=== PATIENT | female | born 1945 | race Caucasian/White ===

== ENCOUNTER 2016-05-31 13:00 | Outpatient (CLI) | payer BC | END 2016-05-31 13:01 | disposition home or self-care (01) | DX: E03.9 Hypothyroidism, unspecified (principal); M12.9 Arthropathy, unspecified ==

== ENCOUNTER 2016-08-01 15:22 | Outpatient (CLI) | payer BC ==
--- NOTE | 2016-08-02 09:43 | XRAY Report ---
THREE-VIEW RIGHT FOOT: 08/01/2016 CLINICAL INDICATION: Pain. FINDINGS: AP, lateral, oblique views of the right foot demonstrate no evidence of fracture or disloc ation. Postoperative changes are seen in the first metatarsal head. Mild osteoarthritic changes are seen in the first metatarsophalangeal joint and interphalangeal joints. No radiopaque foreign body is seen in the soft tissues. IMPRESSION: POSTOPERATIVE CHANGES AND MILD OSTEOARTHRITIS. NO EVIDENCE OF ACUTE FRACTURE. JOB #: [id number] EXT JOB #:[id number]
--- NOTE | 2016-08-02 13:45 | XRAY Report ---
THREE-VIEW LEFT HAND: 08/01/2016 CLINICAL INDICATION: Pain. COMPARISON: 05/09/2016 FINDINGS: AP, lateral, oblique views of the left hand demonstrate stable osteoarthritis. There is n o evidence of interval fracture. No radiopaque foreign body is seen in the soft tissues. IMPRESSION: OSTEOARTHRITIS. NO EVIDENCE OF FRACTURE. JOB #: [id number] EXT JOB #:[id number]
== END 2016-08-01 15:23 | disposition home or self-care (01) ==
LOC: DI.S 15:22
PROVIDERS: ATTEND Nurse Practitioner Family
DX: M19.071 Primary osteoarthritis, right ankle and foot (principal); M19.042 Primary osteoarthritis, left hand

== ENCOUNTER 2017-03-07 14:30 | Outpatient (CLI) | payer BC ==
[2017-03-07 15:01] LABS: BASOPHILS % (AUTO) 0.6 %; EOSINOPHILS # (AUTO) 0.1 10^3/uL (0.0-0.7); HGB - HEMOGLOBIN 13.1 g/dL (12.0-16.0); LYMPHOCYTES # (AUTO) 1.5 10^3/uL (1.5-3.5); LYMPHOCYTES % (AUTO) 27.3 %; MEAN CORPUSCULAR HEMOGLOBIN 31.1 pg (27.0-31.0); MEAN CORPUSCULAR HGB CONC 33.7 g/dL (32.0-36.0); MEAN CORPUSCULAR VOLUME 92.2 fL (81.0-99.0); MEAN PLATELET VOLUME 6.9 fL (7.9-10.8); MONOCYTES # (AUTO) 0.3 10^3/uL (0.0-1.0); MONOCYTES % (AUTO) 5.9 %; NEUTROPHILS # (AUTO) 3.7 10^3/uL (1.5-6.6); NEUTROPHILS % (AUTO) 65.2 %; PLT - PLATELET COUNT 264 10^3/uL (130-450); RED BLOOD COUNT 4.22 10^6/uL (4.20-5.40); RED CELL DISTRIBUTION WIDTH 12.5 % (12.0-15.0); WHITE BLOOD COUNT 5.7 x10^3/uL (4.8-10.8)
[2017-03-07 15:07] LABS: ALBUMIN 4.1 g/dL (3.2-5.5); ALBUMIN/GLOBULIN RATIO 1.5 (1.0-2.2); BILIRUBIN,TOTAL 0.4 mg/dL (0.2-1.0); CALCIUM 8.9 mg/dL (8.5-10.3); CREATININE 0.7 mg/dL (0.4-1.0); TOTAL PROTEIN 6.9 g/dL (6.7-8.2)
== END 2017-03-07 14:31 | disposition home or self-care (01) ==
LOC: LAB 14:30
PROVIDERS: ATTEND Nurse Practitioner Family
DX: R10.31 Right lower quadrant pain (principal)
CPT/HCPCS: 36415; 80053; 85025

== ENCOUNTER 2017-06-07 09:33 | Outpatient (CLI) | payer BC ==
[2017-06-07 18:33] LABS: T3 UPTAKE 38.4 % (32.0-48.4)
[2017-06-07 18:40] LABS: FREE T4 (FREE THYROXINE) 1.04 ng/dL (0.58-1.64)
[2017-06-12 10:47] LABS: THYROID PEROXIDASE ANTIBODIES 197 IU/mL (<9)
== END 2017-06-07 09:34 | disposition home or self-care (01) ==
LOC: LAB.F 09:33
PROVIDERS: ATTEND Nurse Practitioner
DX: E06.3 Autoimmune thyroiditis (principal); E03.9 Hypothyroidism, unspecified
CPT/HCPCS: 36415; 81599; 83519; 84439; 84445; 84479; 84481; 84482; 86376; 86800

== ENCOUNTER 2017-06-12 12:22 | Outpatient (CLI) | payer BC ==
--- NOTE | 2017-06-12 14:30 | XRAY Report ---
TWO VIEW BILATERAL WRIST: 06/12/2017 CLINICAL INDICATION: Fall, pain. FINDINGS: Frontal and lateral views of the bilateral wrists demonstrate left worse than right osteoarthritis. No definite fracture or dislocation is identified on these two views. IMPRESSION: LEFT WORSE THAN RIGHT OSTEOARTHRITIS. TD: 06/12/2017 14:28
== END 2017-06-12 12:23 | disposition home or self-care (01) ==
LOC: DI.S 12:22
PROVIDERS: ATTEND Nurse Practitioner Family
DX: M19.031 Primary osteoarthritis, right wrist (principal); M19.032 Primary osteoarthritis, left wrist

== ENCOUNTER 2017-09-04 14:39 | Outpatient (CLI) | payer BC | END 2017-09-04 14:40 | disposition home or self-care (01) | LOC: LAB.F 14:39 | PROVIDERS: ATTEND Nurse Practitioner Family | DX: M62.838 Other muscle spasm (principal) | CPT/HCPCS: 36415; 84132 ==

== ENCOUNTER 2017-10-01 11:07 | Outpatient (CLI) | payer BC | END 2017-10-01 11:08 | disposition home or self-care (01) | LOC: LAB.F 11:07 | PROVIDERS: ATTEND Nurse Practitioner Family | DX: E06.3 Autoimmune thyroiditis (principal) | CPT/HCPCS: 36415; 84443; 84481 ==

== ENCOUNTER 2018-02-11 15:19 | Outpatient (CLI) | payer BC | END 2018-02-11 15:20 | disposition home or self-care (01) | LOC: LAB.F 15:19 | PROVIDERS: ATTEND Nurse Practitioner | DX: Z00.00 Encounter for general adult medical examination without abnormal findings (principal); Z20.9 Contact with and (suspected) exposure to unspecified communicable disease; R82.90 Unspecified abnormal findings in urine; M25.50 Pain in unspecified joint; E03.9 Hypothyroidism, unspecified ==

== ENCOUNTER 2018-02-14 11:46 | Outpatient (CLI) | payer BC ==
[2018-02-14 17:39] LABS: BASOPHILS % (AUTO) 0.8 %; EOSINOPHILS % (AUTO) 0.5 %; HGB - HEMOGLOBIN 13.8 g/dL (12.0-16.0); LYMPHOCYTES # (AUTO) 1.2 10^3/uL (1.5-3.5); LYMPHOCYTES % (AUTO) 26.4 %; MEAN CORPUSCULAR HEMOGLOBIN 30.9 pg (27.0-31.0); MEAN CORPUSCULAR HGB CONC 32.4 g/dL (32.0-36.0); MEAN CORPUSCULAR VOLUME 95.3 fL (81.0-99.0); MEAN PLATELET VOLUME 8.1 fL (7.9-10.8); MONOCYTES # (AUTO) 0.2 10^3/uL (0.0-1.0); MONOCYTES % (AUTO) 5.6 %; NEUTROPHILS % (AUTO) 66.7 %; PLT - PLATELET COUNT 249 10^3/uL (130-450); RED BLOOD COUNT 4.48 10^6/uL (4.20-5.40); RED CELL DISTRIBUTION WIDTH 12.8 % (12.0-15.0); WHITE BLOOD COUNT 4.4 x10^3/uL (4.8-10.8)
[2018-02-14 17:45] LABS: BILIRUBIN,URINE NEGATIVE (NEGATIVE); GLUCOSE, URINE (UA) NEGATIVE (NEGATIVE); KETONES,URINE (UA) NEGATIVE (NEGATIVE); LEUKOCYTE ESTERASE, URINE NEGATIVE (NEGATIVE); NITRITE,URINE NEGATIVE (NEGATIVE); OCCULT BLOOD,URINE NEGATIVE (NEGATIVE); PROTEIN,URINE NEGATIVE (NEGATIVE); UROBILINOGEN,URINE 0.2 (NORMAL) E.U./dL (NORMAL)
[2018-02-14 17:53] LABS: CLARITY,URINE CLOUDY (CLEAR); RBC,URINE None Seen /HPF (0-5)
[2018-02-14 17:54] LABS: AMORPHOUS SEDIMENT,UR Marked /LPF; BACTERIA,URINE None Seen /HPF (None Seen); SQUAMOUS EPITHELIAL CELL,UR RARE Squamous (<= Few)
[2018-02-14 18:12] LABS: ALBUMIN 4.4 g/dL (3.2-5.5); ALBUMIN/GLOBULIN RATIO 1.5 (1.0-2.2); ALKALINE PHOSPHATASE 53 IU/L (42-121); ALT ALANINE AMINOTRANSFERASE 12 IU/L (10-60); AST ASPARTATE AMINOTRANSFERASE 21 IU/L (10-42); BILIRUBIN,TOTAL 0.7 mg/dL (0.2-1.0); BUN - BLOOD UREA NITROGEN 18 mg/dL (6-20); CALCIUM 9.2 mg/dL (8.5-10.3); CARBON DIOXIDE - CO2 27 mmol/L (21-32); CHLORIDE 100 mmol/L (101-111); CHOL/HDL RATIO 3.3 (<4.4); CHOLESTEROL 252 mg/dL; CREATININE 0.7 mg/dL (0.4-1.0); GFR - MDRD 82 (>89); GLUCOSE 87 mg/dL (70-100); HDL CHOLESTEROL 76 mg/dL; LDL CHOLESTEROL,CALCULATED 168 mg/dL; LDL/HDL RATIO 2.2 (<4.4); SODIUM 135 mmol/L (135-145); TOTAL PROTEIN 7.3 g/dL (6.7-8.2); VLDL CHOLESTEROL 8 mg/dL
[2018-02-14 18:25] LABS: FREE T4 (FREE THYROXINE) 0.99 ng/dL (0.58-1.64); THYROID STIMULATING HORMONE 1.75 uIU/mL (0.34-5.60)
[2018-02-14 18:29] LABS: FERRITIN 87.7 ng/mL (11.0-306.8)
[2018-02-14 18:34] LABS: FOLATE 14.12 ng/mL (5.90 - >24.8)
[2018-02-15 12:08] LABS: HEPATITIS C ANTIBODY NON-REACTIVE (NON-REACTIVE)
[2018-02-15 14:48] LABS: HIV AG/AB 4TH GEN NON-REACTIVE (NON-REACTIVE)
[2018-02-16 12:25] LABS: ANA SCREEN NEGATIVE (NEGATIVE)
== END 2018-02-14 11:47 | disposition home or self-care (01) ==
LOC: LAB.F 11:46
PROVIDERS: ATTEND Nurse Practitioner
DX: Z00.00 Encounter for general adult medical examination without abnormal findings (principal); M25.50 Pain in unspecified joint; R53.83 Other fatigue; R82.90 Unspecified abnormal findings in urine; Z20.9 Contact with and (suspected) exposure to unspecified communicable disease; E03.9 Hypothyroidism, unspecified; N95.1 Menopausal and female climacteric states
CPT/HCPCS: 36415; 80053; 80061; 81001; 82306; 82607; 82672; 82728; 82746; 83721; 84439; 84443; 85025; 86038; 86803; 87389

== ENCOUNTER 2018-06-06 11:31 | Outpatient (CLI) | payer MEDICARE ==
--- NOTE | 2018-06-06 15:03 | XRAY Report ---
Reason: LEFT HAND WRIST PAIN Procedure Date: 06/06/2018 Accession Number: [id number] / [id number] Procedure: XR - Hand 3 View LT CPT Code: FULL RESULT: EXAM: LEFT HAND RADIOGRAPHY EXAM DATE: 06/06/2018 12:20 PM. CLINICAL HISTORY: Left hand/wrist pain. Fall on outstretched hand a week ago with continued pain. COMPARISON: HAND 3 VIEW LT 08/01/2016 3:53 PM. TECHNIQUE: 3 views. FINDINGS: Bones: Bone density appears diminished similar to the prior exam. No acute fracture appreciated. Interval removal of the trapezium. No periarticular erosions. Joints: Apparent ankylosis of the fourth DIP. Diffuse joint space narrowing of the MCP, IP and DIP joints of the digits. Soft Tissues: Normal. No soft tissue swelling. IMPRESSION: 1. No appreciable acute fracture. 2. Interval removal of the trapezium. 3. Stable pattern of diminished bone density, and joint space narrowing. RADIA
== END 2018-06-06 11:32 | disposition home or self-care (01) ==
LOC: DI 11:31
PROVIDERS: ATTEND Registered Nurse
DX: S69.92XA Unspecified injury of left wrist, hand and finger(s), initial encounter (principal); M24.642 Ankylosis, left hand

== ENCOUNTER 2018-07-31 08:33 | Outpatient (CLI) | payer MEDICARE ==
[2018-07-31 11:05] LABS: BASOPHILS % (AUTO) 0.8 %; EOSINOPHILS % (AUTO) 0.8 %; HGB - HEMOGLOBIN 13.7 g/dL (12.0-16.0); LYMPHOCYTES # (AUTO) 1.5 10^3/uL (1.5-3.5); LYMPHOCYTES % (AUTO) 29.6 %; MEAN CORPUSCULAR HEMOGLOBIN 30.7 pg (27.0-31.0); MEAN CORPUSCULAR HGB CONC 32.8 g/dL (32.0-36.0); MEAN CORPUSCULAR VOLUME 93.7 fL (81.0-99.0); MEAN PLATELET VOLUME 7.5 fL (7.9-10.8); MONOCYTES # (AUTO) 0.4 10^3/uL (0.0-1.0); MONOCYTES % (AUTO) 7.6 %; NEUTROPHILS % (AUTO) 61.2 %; PLT - PLATELET COUNT 243 10^3/uL (130-450); RED BLOOD COUNT 4.45 10^6/uL (4.20-5.40)
[2018-07-31 11:25] LABS: ALBUMIN 4.3 g/dL (3.2-5.5); ALBUMIN/GLOBULIN RATIO 1.5 (1.0-2.2); ALKALINE PHOSPHATASE 45 IU/L (42-121); ALT ALANINE AMINOTRANSFERASE 18 IU/L (10-60); AST ASPARTATE AMINOTRANSFERASE 26 IU/L (10-42); BILIRUBIN,TOTAL 0.8 mg/dL (0.2-1.0); BUN - BLOOD UREA NITROGEN 22 mg/dL (6-20); CALCIUM 9.1 mg/dL (8.5-10.3); CARBON DIOXIDE - CO2 31 mmol/L (21-32); CHLORIDE 99 mmol/L (101-111); CHOL/HDL RATIO 3.1 (<4.4); CHOLESTEROL 235 mg/dL; CREATININE 0.7 mg/dL (0.4-1.0); GFR - MDRD 82 (>89); GLUCOSE 104 mg/dL (70-100); HDL CHOLESTEROL 76 mg/dL; MAGNESIUM 2.2 mg/dL (1.7-2.8); SODIUM 138 mmol/L (135-145); TOTAL PROTEIN 7.2 g/dL (6.7-8.2)
[2018-07-31 11:59] LABS: LDL CHOLESTEROL,DIRECT 146 mg/dL; LDLD/HDL RATIO 1.9 (<4.4)
[2018-07-31 12:02] LABS: HB2 TOTAL 14.4 g/dL; HEMOGLOBIN A1C 0.61 g/dL
== END 2018-07-31 08:34 | disposition home or self-care (01) ==
LOC: LAB.F 08:33
PROVIDERS: ATTEND Registered Nurse
DX: M62.838 Other muscle spasm (principal)
CPT/HCPCS: 36415; 80053; 80061; 83036; 83721; 83735; 84443; 85025

== ENCOUNTER 2018-11-07 10:30 | Outpatient (CLI) | payer MEDICARE | END 2018-11-07 23:59 | disposition home or self-care (01) | LOC: LAB.R 10:30 | PROVIDERS: ATTEND Nurse Practitioner | DX: R19.7 Diarrhea, unspecified (principal) | CPT/HCPCS: 81599; 87507 ==

== ENCOUNTER 2018-12-05 13:50 | Outpatient (CLI) | payer MEDICARE ==
[2018-12-05 17:50] LABS: CALCIUM 9.1 mg/dL (8.5-10.3); CREATININE 0.7 mg/dL (0.4-1.0)
== END 2018-12-05 13:51 | disposition home or self-care (01) ==
LOC: LAB.S 13:50
PROVIDERS: ATTEND Nurse Practitioner
DX: M81.0 Age-related osteoporosis without current pathological fracture (principal)
CPT/HCPCS: 36415; 80048

== ENCOUNTER 2021-11-30 13:41 | Outpatient (CLI) | payer MEDICARE ==
[2021-11-30 14:43] LABS: THYROID STIMULATING HORMONE 2.74 uIU/mL (0.34-5.60)
[2021-11-30 14:45] LABS: FREE T4 (FREE THYROXINE) 0.74 ng/dL (0.58-1.64)
[2021-12-03 04:08] LABS: REVERSE T3 SERUM 22.4 ng/dL (9.2-24.1)
== END 2021-11-30 13:42 | disposition home or self-care (01) ==
LOC: LAB 13:41
PROVIDERS: ATTEND Family Medicine
DX: E03.9 Hypothyroidism, unspecified (principal)
CPT/HCPCS: 36415; 84439; 84443; 84482; 86376

== ENCOUNTER 2022-01-01 01:15 | Outpatient (CLI) | payer MEDICARE | END 2022-01-01 01:16 | disposition EMS.NT | LOC: EMS 01:15 | DX: R00.2 Palpitations (principal) ==

== ENCOUNTER 2022-08-02 08:54 | Emergency (ER) | payer MEDICARE ==
[2022-08-02 09:43] LABS: BASOPHILS % (AUTO) 0.7 %; EOSINOPHILS # (AUTO) 0.1 10^3/uL (0.0-0.7); EOSINOPHILS % (AUTO) 1.7 %; HGB - HEMOGLOBIN 13.9 g/dL (12.0-16.0); LYMPHOCYTES # (AUTO) 1.1 10^3/uL (1.5-3.5); MEAN CORPUSCULAR HEMOGLOBIN 30.3 pg (27.0-31.0); MEAN CORPUSCULAR HGB CONC 32.3 g/dL (32.0-36.0); MEAN CORPUSCULAR VOLUME 93.9 fL (81.0-99.0); MEAN PLATELET VOLUME 8.9 fL (7.9-10.8); MONOCYTES # (AUTO) 0.3 10^3/uL (0.0-1.0); MONOCYTES % (AUTO) 6.7 %; NEUTROPHILS # (AUTO) 2.7 10^3/uL (1.5-6.6); NEUTROPHILS % (AUTO) 63.7 %; PLT - PLATELET COUNT 309 10^3/uL (130-450); RED BLOOD COUNT 4.58 10^6/uL (4.20-5.40); RED CELL DISTRIBUTION WIDTH 12.1 % (12.0-15.0); WHITE BLOOD COUNT 4.2 x10^3/uL (4.8-10.8)
[2022-08-02 10:01] LABS: ALBUMIN 4.5 g/dL (3.2-5.5); ALBUMIN/GLOBULIN RATIO 1.4 (1.0-2.2); BILIRUBIN,TOTAL 0.7 mg/dL (0.2-1.0); CALCIUM 9.3 mg/dL (8.5-10.3); CREATININE 0.7 mg/dL (0.4-1.0); TOTAL PROTEIN 7.8 g/dL (6.7-8.2)
[2022-08-02 10:31] LABS: BILIRUBIN,URINE NEGATIVE (NEGATIVE); GLUCOSE, URINE (UA) NEGATIVE (NEGATIVE); KETONES,URINE (UA) TRACE mg/dL (NEGATIVE); LEUKOCYTE ESTERASE, URINE NEGATIVE (NEGATIVE); NITRITE,URINE NEGATIVE (NEGATIVE); OCCULT BLOOD,URINE NEGATIVE (NEGATIVE); PH,URINE 5.5 PH (5.0-7.5); PROTEIN,URINE NEGATIVE (NEGATIVE); UROBILINOGEN,URINE 0.2 (NORMAL) E.U./dL (NORMAL)
[2022-08-02 10:33] LABS: CLARITY,URINE CLEAR (CLEAR)
[2022-08-02] MEDS ORDERED: iohexoL-300 100 ML VIAL ONE ×2 (10:45→11:18)
--- NOTE | 2022-08-02 12:20 | CT Report ---
PROCEDURE: ABDOMEN/PELVIS W INDICATIONS: R sided pain CONTRAST: 100ml Omnipaque 300 TECHNIQUE: After the administration of intravenous contrast, 5 mm thick sections acquired from the diaphragms to the symphysis. 5 mm thick coronal and sagittal reformats were acquired. For radiation dose reducti on, the following was used: automated exposure control, adjustment of mA and/or kV according to ronal ent size. COMPARISON: None FINDINGS: Image quality: Excellent. Lung bases and heart: Unremarkable. Liver: No solid mass. Gallbladder and biliary tree: No radiopaque stones or wall thickening. No biliary dilation. Spleen: No splenomegaly. Pancreas: No pancreatic ductal dilation. Adrenals: No adrenal nodule. Kidneys and ureters: No hydronephrosis. No renal cystic lesion which requires follow up. No solid mas s. Bowel and peritoneum: No bowel distension. No pathologic free fluid. Remote partial distal colectomy. Elongated, redundant colon, with cecum deep in the pelvis. The appendix is not visualized. No seconda ry findings identified related to acute appendicitis. Lymph nodes: No central or retroperitoneal adenopathy. Vessels: No infrarenal aortic aneurysm. PELVIS Reproductive organs: Uterus is surgically absent. Bladder: No abnormal wall thickening, accounting for underdistension. Pelvic lymph nodes: No pelvic adenopathy by size criteria. Bones: No aggressive osseous abnormality. Other: No significant ventral or inguinal hernia. IMPRESSION: 1. No evidence acute abdominal process. 2. Appendix not identified. No secondary findings suggestive of acute appendicitis. 3. Remote hysterectomy, remote partial distal colectomy. Reviewed by: Abdulaziz Smith MD on 08/02/2022 12:19 PM PDT Approved by: Abdulaziz Smith MD on 08/02/2022 12:19 PM PDT Station ID: [id number]
--- NOTE | 2022-08-02 12:22 | Ultrasound Report ---
PROCEDURE: Abdomen Limited INDICATIONS: RUQ pain TECHNIQUE: Real-time focused scanning was performed of the abdomen, with image documentation. COMPARISONS: CT abdomen and pelvis from today. FINDINGS: Liver: Mild increased echogenicity of the liver which, by CT, correlates with mild diffuse hepatic s teatosis. Gallbladder: Unremarkable. Biliary ducts: Intrahepatic bile ducts are non-dilated. Extrahepatic bile duct caliber measures 3 m m. Normal is 6-7 mm or less in diameter, or 10 mm or less post-cholecystectomy. Pancreas: Visualized portions of the pancreas are sonographically normal. Right kidney: Normal in size and echotexture. Right kidney measures 11.5 cm long. No hydronephrosis or nephrolithiasis. No solid masses. No complex renal cystic lesions which require follow-up. Aorta: Visualized aorta is normal in caliber at less than 3 cm. IVC: Intrahepatic inferior vena cava is patent. Miscellaneous: No free abdominal fluid. IMPRESSION: 1. Mild diffuse hepatic steatosis. 2. No evidence of gallbladder disease. Reviewed by: Abdulaziz Smith MD on 08/02/2022 12:21 PM PDT Approved by: Abdulaziz Smith MD on 08/02/2022 12:21 PM PDT Station ID: [id number]
--- NOTE | 2022-08-02 12:50 | ED Physician Documentation ---
PD HPI ABD PAIN - Stated complaint Stated Complaint: RT ABD/BACK PX - Chief complaint Chief Complaint: Abd Pain - History obtained from History obtained from: Patient - Additional information Additional information: Pt is a 76 yo F presenting with R sided abdominal and back pain x 4-5 days. She reports history of multiple prior abdominal surgeries but is unsure if she has a gallbladder. She was moving a lot of things around on Sunday prior to onset of pain. No N/V/D or dysuria. Pain has lessened this morning. Last BM yesterday. Review of Systems Constitutional: denies: Fever Cardiac: denies: Chest pain / pressure Respiratory: denies: Dyspnea GI: reports: Abdominal Pain. denies: Vomiting PD PAST MEDICAL HISTORY - Past Surgical History Past Surgical History: Yes - Present Medications Home Medications: Ambulatory Orders Medication Instructions Recorded Confirmed DULoxetine [Cymbalta] 20 mg PO DAILY 08/02/22 08/02/22 Levothyroxine [Synthroid] 88 mcg PO QDAC 08/02/22 08/02/22 Permethrin 5% Cream [Permethrin 1 applic TOP DAILY 08/02/22 08/02/22 Cream] - Allergies Allergies/Adverse Reactions: Allergies Allergy/AdvReac Type Severity Reaction Status Date / Time acetaminophen [From Tylenol] AdvReac Unknown Verified 08/02/22 09:11 - Social History Does the pt smoke?: No Smoking Status: Never smoker Does the pt drink ETOH?: No - Immunizations Immunizations are current?: No PD ED PE NORMAL - General General: Alert and oriented X 3, No acute distress, Well developed/nourished - HEENT HEENT: Atraumatic - Neck Neck: Supple, no meningeal sign - Cardiac Cardiac: RRR, No murmur - Respiratory Respiratory: No respiratory distress, Clear bilaterally - Abdomen Abdomen: Normal bowel sounds, Soft, Non distended, Other (Mild RUQ and RLQ tenderness, no guarding, no mass) - Back Back: No CVA TTP - Derm Derm: Warm and dry - Extremities Extremities: No edema - Neuro Neuro: Normal speech Results - Vitals Vitals: Vital Signs - 24 hr 08/02/22 08/02/22 08/02/22 09:11 10:55 12:51 Temperature 36.5 C Heart Rate 65 58 L 55 L Respiratory 16 16 18 Rate Blood Pressure 140/60 H 117/78 148/67 H O2 Saturation 100 100 99 Oxygen O2 Source Room air - Labs Labs: Laboratory Tests 08/02/22 08/02/22 08/02/22 09:38 09:38 10:25 WBC 4.2 L RBC 4.58 Hgb 13.9 Hct 43.0 MCV 93.9 MCH 30.3 MCHC 32.3 RDW 12.1 Plt Count 309 MPV 8.9 Neut # (Auto) 2.7 Lymph # (Auto) 1.1 L [place] # (Auto) 0.3 Eos # (Auto) 0.1 Baso # (Auto) 0.0 Absolute Nucleated RBC 0.00 Nucleated RBC % 0.0 Sodium 139 Potassium 4.0 Chloride 103 Carbon Dioxide 30 Anion Gap 6.0 BUN 21 H Creatinine 0.7 Estimated GFR (MDRD) 82 L Glucose 99 Calcium 9.3 Total Bilirubin 0.7 AST 23 ALT 16 Alkaline Phosphatase 45 Total Protein 7.8 Albumin 4.5 Globulin 3.3 Albumin/Globulin Ratio 1.4 Lipase 33 Urine Color DARK YELLOW Urine Clarity CLEAR Urine pH 5.5 Ur Specific [place] >=1.030 H Urine Protein NEGATIVE Urine Glucose (UA) NEGATIVE Urine Ketones TRACE Urine Occult Blood NEGATIVE Urine Nitrite NEGATIVE Urine Bilirubin NEGATIVE Urine Urobilinogen 0.2 (NORMAL) Ur Leukocyte Esterase NEGATIVE Ur Microscopic Review NOT INDICATED Urine Culture Comments NOT INDICATED PD Medical Decision Making - ED course Complexity details: reviewed results, re-evaluated patient ED course: Pt with R sided abdominal pain. VSS. Labs including CBC and Chemistries without significant findings. Pt declined need for pain meds here. UA without infection. CT abd/pelvis and US RUQ obtained without acute findings. Repeat abdominal exam is benign and pt feeling better here. Pt aware of need for follow up with PCP and advised on concerning symptoms to return for. Departure - Departure Disposition: 01 Home, Self Care Clinical Impression: Right sided abdominal pain Condition: Stable Instructions: ED Abdominal Pain Female Non-Specific Abdominal Pain Comments: The exact cause of your abdominal pain is unclear at this time. Please have close follow-up with your primary care provider if your symptoms continue. If you develop any worsening symptoms such as vomiting or diarrhea or have any new concerns please return to the emergency department. Discharge Date/Time: 08/02/22 13:03
[2022-08-02 12:55] VITALS: BP 148/67
[2022-08-02] MEDS ORDERED: iohexoL-300 100 ML VIAL IVP ONE (17:00)
== END 2022-08-02 13:03 | disposition home or self-care (01) ==
LOC: ED 08:54
DX: R10.9 Unspecified abdominal pain (principal)
CPT/HCPCS: 36415; 74177; 76705; 80053; 81003; 83690; 85025; 99283; 99284; Q9967; 81001; 87086